=== PATIENT | male | born 2000 | race Two or more races ===

== ENCOUNTER 2025-02-21 16:40 | Emergency (ER) | payer SELFPAY ==
[~2025-02-21] VITALS: Ht 167.6 cm; Wt 99.5 kg
[2025-02-21 16:53] VITALS: BP 151/84; PULSE 102; RESP 16; TEMP 98.6; O2SAT 97
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
[2025-02-21] MEDS ORDERED: NEOMYCIN-BACITRACIN-POLYM UNITDOSE PKG TOP OINT TOP ONE (17:00)
== END 2025-02-21 18:17 | disposition left against medical advice (07) ==
LOC: ER 16:40
DX: S80.811A Abrasion, right lower leg, initial encounter (principal); S60.511A Abrasion of right hand, initial encounter; F17.210 Nicotine dependence, cigarettes, uncomplicated; V29.99XA Rider (driver) (passenger) of other motorcycle injured in unspecified traffic accident, initial encounter; Y93.55 Activity, bike riding; Y92.89 Other specified places as the place of occurrence of the external cause; Y99.8 Other external cause status